=== PATIENT | male | born 1975 | race Caucasian/White ===

== ENCOUNTER 2024-10-21 06:20 | Inpatient (IN) | payer MEDICAID, OTHER ==
[2024-10-21] VITALS (8 sets, daily range): BP systolic 99–119; BP diastolic 71–93; TEMP 98.2; O2SAT 97–100
[~2024-10-21] VITALS: Ht 175.3 cm; Wt 74.4 kg
[2024-10-21] MEDS: IV NS 0.9% 500 ML BAG IV ONE (06:42)
[2024-10-21] MEDS ORDERED: Magnesium 1GM/D5W 100ML PREMIX 100 ML IV ONE (06:57)
[2024-10-21 06:58] LABS: CALCIUM, SERUM 9.3 mg/dL (8.5-10.1); CARBON DIOXIDE 26 mmol/L (21-32); CHLORIDE 102 mmol/L (98-107); CREATININE 1.4 mg/dL (0.6-1.3); GLUCOSE 157 mg/dL (74-106); POTASSIUM 4.5 mmol/L (3.5-5.1); SODIUM SERUM 136 mmol/L (136-145); UREA NITROGEN, BLOOD 43 mg/dL (7-18)
[2024-10-21 07:06] LABS: LACTIC ACID 2.4 mmol/L (0.4-2.0)
[2024-10-21] MEDS: Magnesium 1GM/D5W 100ML PREMIX 100 ML IV SCH (07:06)
[2024-10-21 07:08] LABS: BASOPHILS % (AUTO) 0.6 % (0.0-2.0); EOSINOPHILS # (AUTO) 0.1 K/uL (0.0-0.7); EOSINOPHILS % (AUTO) 0.7 % (0.0-6.0); HEMATOCRIT 40 % (39-51); INR 1.12 (0.91-1.10); LYMPHOCYTES # (AUTO) 1.9 K/uL (0.8-4.8); LYMPHOCYTES % (AUTO) 24.9 % (20.0-44.0); MEAN CORPUSCULAR HEMOGLOBIN 29 PG (26.0-33.0); MEAN CORPUSCULAR HGB CONC 33 g/dl (31.0-36.0); MEAN CORPUSCULAR VOLUME 90 fL (80-96); MONOCYTES # (AUTO) 0.4 K/uL (0.1-1.30); MONOCYTES % (AUTO) 5.9 % (2.0-12.0); NEUTROPHILS # (AUTO) 5.2 K/uL (1.8-8.9); NEUTROPHILS % (AUTO) 67.9 % (43.0-81.0); PARTIAL THROMBOPLASTIN TIME 26.3 SEC (24.3-34.3); PLATELET COUNT (AUTO) 196 K/uL (150-450); PROTHROMBIN TIME 11.8 SECS (9.2-11.1); RED BLOOD CELL COUNT(AUTO) 4.41 MIL/uL (4.5-6.0); WHITE BLOOD COUNT (AUTO) 7.6 K/uL (4.3-11.0)
[2024-10-21 07:14] LABS: ALKALINE PHOSPHATASE 113 U/L (46-116); ASPARTATE AMINOTRANSFERASE 59 U/L (15-37); BILIRUBIN,TOTAL 0.4 mg/dL (0.2-1.0); TOTAL PROTEIN, SERUM 7.5 g/dL (6.4-8.2)
[2024-10-21 07:27] LABS: ALANINE AMINOTRANSFERASE 96 U/L (12-78); BILIRUBIN,DIRECT 0.1 mg/dL (0.0-0.2)
[2024-10-21] MEDS ORDERED: ONDANSETRON HCL/PF 4 MG/2 ML VIAL ONE (07:32)
[2024-10-21] MEDS: ONDANSETRON HCL/PF - ER 4 MG/2 ML VIAL IV ONE (07:37)
[2024-10-21 07:47] LABS: MAGNESIUM 2.6 mg/dL (1.8-2.4); PHOSPHORUS 6.7 mg/dL (2.5-4.9)
[2024-10-21] MEDS: IV NS 0.9% 1,000 ML BAG IV ONE ×2 (08:33→10:02)
[2024-10-21 08:42] LABS: AMPHETAMINE, URINE NEGATIVE (NEGATIVE); APPEARANCE,URINE CLEAR (CLEAR); BARBITURATE, URINE NEGATIVE (NEGATIVE); BENZODIAZEPINE, URINE NEGATIVE (NEGATIVE); BILIRUBIN,URINE NEGATIVE (NEGATIVE); BLOOD, URINE NEGATIVE Ery/uL (NEGATIVE); CANNABINOID, URINE NEGATIVE (NEGATIVE); COCCAINE, URINE NEGATIVE (NEGATIVE); COLOR,URINE YELLOW (YELLOW); KETONES,URINE NEGATIVE (NEGATIVE); LEUKOCYTE ESTERASE ,URINE NEGATIVE (NEGATIVE); NITRITE, URINE NEGATIVE (NEGATIVE); OPIATE, URINE NEGATIVE (NEGATIVE); PH,URINE 5.5 (5.0-8.0); PHENCYCLIDINE SCREEN,URINE NEGATIVE (NEGATIVE); PROTEIN,URINE NEGATIVE (NEGATIVE); UGLUCOSE 2+ mg/dL (NEGATIVE); UROBILINOGEN,URINE 0.2 EU/dL (0.2)
[2024-10-21 09:02] LABS: ADD URINE CULTURE NO; BACTERIA,URINE Few /HPF (None Seen); RBC,URINE 0-2 /HPF (0-2); SQUAMOUS EPITHELIAL CELL,UR Few /HPF (None Seen); WBC,URINE 0-2 /HPF (0-3)
[2024-10-21] MEDS ORDERED: IOHEXOL-300 100 ML VIAL IV ONE (10:05)
[2024-10-21] MEDS ORDERED: CT SWABBABLE VALVE TRANS SET 1 EA INFUS.SET MC ONE (10:05)
[2024-10-21] MEDS ORDERED: IV NS 0.9% 250 ML IV ONE (10:05)
[2024-10-21] MEDS ORDERED: NOREPINEPHRINE 8MG/250ML RTU 250 ML IV ONE (11:11)
[2024-10-21] MEDS: NOREPINEPHRINE 8 MG in IV D5W 242 ML IV PRN ×2 (11:15→13:00)
[2024-10-21] MEDS: PIPERACILLIN /TAZOBACTAM 3.375 G in IV D5W 50 ML IV SCH (11:50)
[2024-10-21] MEDS ORDERED: ONDANSETRON HCL/PF 4 MG/2 ML VIAL IVP PRN (12:00)
[2024-10-21] MEDS: PANTOPRAZOLE 40 MG VIAL IV SCH (12:00)
[2024-10-21] MEDS: VANCOMYCIN 1 GM in IV D5W 250 ML IV SCH (12:15)
[2024-10-21] MEDS: DoBUTamine 500 MG/250 ML PIGGYBACK IV ONE (13:09)
[2024-10-21] MEDS: ACETAMINOPHEN 325 MG TABLET PO PRN (14:12)
[2024-10-21] MEDS ORDERED: MORPHINE SULFATE INJ 2 MG/ML DISP.SYRIN IV ONE (15:00)
[2024-10-21] MEDS ORDERED: APIX2.5T PO (20:40)
[2024-10-21] MEDS ORDERED: GABA-532 PO (20:40)
[2024-10-21] MEDS ORDERED: TRAM50TA2 PO (20:40)
[2024-10-21] MEDS ORDERED: LORA-259 PO (20:40)
[2024-10-21] MEDS ORDERED: SPIR25TA6 PO (20:40)
[2024-10-21] MEDS ORDERED: BUPR100T5 PO (20:40)
[2024-10-21] MEDS ORDERED: ATOR10TA PO (20:40)
[2024-10-21] MEDS ORDERED: EMPA10TA PO (20:40)
[2024-10-21] MEDS ORDERED: QUET25TA PO (20:40)
== END 2024-10-21 15:10 | disposition left against medical advice (07) | DRG 194 ==
LOC: EDBD → ER 06:22 → TELE1 10:16 → ICU 11:20
PROVIDERS: ADMIT Nurse Practitioner Acute Care; ATTEND Nurse Practitioner Acute Care
DX: I11.0 Hypertensive heart disease with heart failure (principal); N17.0 Acute kidney failure with tubular necrosis; R57.0 Cardiogenic shock; E87.20 Acidosis, unspecified; I95.9 Hypotension, unspecified; E44.1 Mild protein-calorie malnutrition; Z79.01 Long term (current) use of anticoagulants; E88.09 Other disorders of plasma-protein metabolism, not elsewhere classified; K81.9 Cholecystitis, unspecified; K76.1 Chronic passive congestion of liver; I50.23 Acute on chronic systolic (congestive) heart failure; F15.20 Other stimulant dependence, uncomplicated; I48.0 Paroxysmal atrial fibrillation; J44.9 Chronic obstructive pulmonary disease, unspecified; R74.01 Elevation of levels of liver transaminase levels; K21.9 Gastro-esophageal reflux disease without esophagitis; Z87.891 Personal history of nicotine dependence; Z68.24 Body mass index [BMI] 24.0-24.9, adult; B99.9 Unspecified infectious disease
CPT/HCPCS: 36415; 71045-TC; 76700-TC; 80048-TC; 80076-TC; 81001; 83605-TC; 83735-TC; 83880; 84100-TC; 84484-TC; 85025-TC; 85730-TC; 87040-TC; 87086-TC; A4223; G0378; J2270; J2405; J2543; J3370; J3475; J7030; J7040; J7050; J7060; Q9967

== ENCOUNTER 2024-10-21 17:24 | Inpatient (IN) | payer MEDICAID ==
[~2024-10-21] VITALS: Ht 177.8 cm; Wt 77.6 kg
[2024-10-21] VITALS (7 sets, daily range): BP systolic 105–120; BP diastolic 82–98; TEMP 97.7; O2SAT 97–100
[2024-10-21] MEDS ORDERED: NOREPINEPHRINE 8MG/250ML RTU 250 ML IV ONE (18:18)
[2024-10-21] MEDS: NOREPINEPHRINE 8 MG in IV D5W 242 ML IV PRN ×2 (18:23→21:35)
[2024-10-21 18:43] LABS: BASOPHILS % (AUTO) 0.5 % (0.0-2.0); EOSINOPHILS % (AUTO) 0.3 % (0.0-6.0); HEMATOCRIT 36 % (39-51); HEMOGLOBIN 12.1 g/dL (13.5-17.5); LYMPHOCYTES # (AUTO) 1.6 K/uL (0.8-4.8); LYMPHOCYTES % (AUTO) 19.7 % (20.0-44.0); MEAN CORPUSCULAR HEMOGLOBIN 30 PG (26.0-33.0); MEAN CORPUSCULAR HGB CONC 34 g/dl (31.0-36.0); MEAN CORPUSCULAR VOLUME 89 fL (80-96); MONOCYTES # (AUTO) 0.6 K/uL (0.1-1.30); MONOCYTES % (AUTO) 7.2 % (2.0-12.0); NEUTROPHILS # (AUTO) 5.9 K/uL (1.8-8.9); NEUTROPHILS % (AUTO) 72.3 % (43.0-81.0); PLATELET COUNT (AUTO) 172 K/uL (150-450); RED BLOOD CELL COUNT(AUTO) 4.03 MIL/uL (4.5-6.0); RED CELL DISTRIBUTION WIDTH 16.7 % (11.5-15.0); WHITE BLOOD COUNT (AUTO) 8.2 K/uL (4.3-11.0)
[2024-10-21 18:54] LABS: INR 1.17 (0.91-1.10); PARTIAL THROMBOPLASTIN TIME 25.4 SEC (24.3-34.3); PROTHROMBIN TIME 12.3 SECS (9.2-11.1)
[2024-10-21 19:04] LABS: ALBUMIN 2.8 g/dL (3.4-5.0); BILIRUBIN,DIRECT 0.3 mg/dL (0.0-0.2); BILIRUBIN,TOTAL 0.7 mg/dL (0.2-1.0); CALCIUM, SERUM 8.4 mg/dL (8.5-10.1); CREATININE 2.2 mg/dL (0.6-1.3); POTASSIUM 5.2 mmol/L (3.5-5.1)
[2024-10-21] MEDS ORDERED: ACETAMINOPHEN 325 MG TABLET PO PRN (20:30)
[2024-10-21] MEDS ORDERED: MAGNESIUM HYDROXIDE 30 ML UDC PO PRN (20:30)
[2024-10-21] MEDS ORDERED: ONDANSETRON HCL/PF 4 MG/2 ML VIAL IVP PRN (20:30)
[2024-10-21] MEDS ORDERED: Z GUARD REMEDY 4 OZ OINT TP PRN (20:30)
[2024-10-21] MEDS ORDERED: APIX2.5T PO (20:40)
[2024-10-21] MEDS ORDERED: TRAM50TA2 PO (20:40)
[2024-10-21] MEDS ORDERED: ATOR10TA PO (20:40)
[2024-10-21] MEDS ORDERED: EMPA10TA PO (20:40)
[2024-10-21] MEDS ORDERED: LORA-259 PO (20:40)
[2024-10-21] MEDS ORDERED: BUPR100T5 PO (20:40)
[2024-10-21] MEDS ORDERED: SPIR25TA6 PO (20:40)
[2024-10-21] MEDS ORDERED: GABA-532 PO (20:40)
[2024-10-21] MEDS ORDERED: QUET25TA PO (20:40)
[2024-10-21] MEDS: TRAZODONE 50 MG TABLET PO PRN (22:31)
[2024-10-21] MEDS: HYDROCODONE/APAP 5/325MG TABLET PO PRN (22:32)
[2024-10-22] VITALS (60 sets, daily range): BP systolic 80–170; BP diastolic 63–126; TEMP 98–98.5; O2SAT 86–98
[2024-10-22 04:41] LABS: BASOPHILS # (AUTO) 0.1 K/uL (0.0-0.2); BASOPHILS % (AUTO) 0.7 % (0.0-2.0); EOSINOPHILS % (AUTO) 0.2 % (0.0-6.0); HEMATOCRIT 38 % (39-51); HEMOGLOBIN 12.6 g/dL (13.5-17.5); LYMPHOCYTES # (AUTO) 2.2 K/uL (0.8-4.8); LYMPHOCYTES % (AUTO) 22.5 % (20.0-44.0); MEAN CORPUSCULAR HEMOGLOBIN 30 PG (26.0-33.0); MEAN CORPUSCULAR HGB CONC 33 g/dl (31.0-36.0); MEAN CORPUSCULAR VOLUME 90 fL (80-96); MONOCYTES # (AUTO) 0.8 K/uL (0.1-1.30); MONOCYTES % (AUTO) 7.7 % (2.0-12.0); NEUTROPHILS # (AUTO) 6.7 K/uL (1.8-8.9); NEUTROPHILS % (AUTO) 68.9 % (43.0-81.0); PLATELET COUNT (AUTO) 159 K/uL (150-450); RED BLOOD CELL COUNT(AUTO) 4.25 MIL/uL (4.5-6.0); RED CELL DISTRIBUTION WIDTH 16.6 % (11.5-15.0); WHITE BLOOD COUNT (AUTO) 9.8 K/uL (4.3-11.0)
[2024-10-22 05:09] LABS: CALCIUM, SERUM 8.9 mg/dL (8.5-10.1); CARBON DIOXIDE 24 mmol/L (21-32); CHLORIDE 102 mmol/L (98-107); CREATININE 1.8 mg/dL (0.6-1.3); GLUCOSE 120 mg/dL (74-106); MAGNESIUM 2.8 mg/dL (1.8-2.4); PHOSPHORUS 5.8 mg/dL (2.5-4.9); POTASSIUM 5.4 mmol/L (3.5-5.1); SODIUM SERUM 136 mmol/L (136-145); UREA NITROGEN, BLOOD 50 mg/dL (7-18)
[2024-10-22 05:23] LABS: CHOLESTEROL 139 mg/dL (<200); HDL CHOLESTEROL 61 mg/dL (40-60); LDL 73 mg/dL (0-99); TRIGLYCERIDES 63 mg/dL (30-150)
[2024-10-22] MEDS: PANTOPRAZOLE 40 MG TABLET.DR PO SCH (07:30)
[2024-10-22] MEDS ORDERED: APIXABAN 5 MG TABLET PO SCH (09:00)
[2024-10-22] MEDS: APIXABAN 5 MG TABLET PO SCH (09:00)
[2024-10-22] MEDS ORDERED: IV NS 0.9% 1,000 ML BAG IV PRN (12:30)
[2024-10-22] MEDS: SODIUM ZIRCONIUM CYCLOSILICATE 5 GM POWD.PACK PO ONE (12:42)
[2024-10-22] MEDS: FUROSEMIDE 20 MG/2 ML VIAL IV SCH ×2 (15:13→21:26)
[2024-10-22 15:46] LABS: CALCIUM, SERUM 8.7 mg/dL (8.5-10.1); CREATININE 1.4 mg/dL (0.6-1.3); POTASSIUM 4.5 mmol/L (3.5-5.1)
[2024-10-22] MEDS: ZOLPIDEM TARTRATE 5 MG TABLET PO PRN (22:26)
[2024-10-23] VITALS (24 sets, daily range): BP systolic 95–137; BP diastolic 62–90; TEMP 97.3–98.8; O2SAT 65–100
[2024-10-23 04:29] LABS: BASOPHILS % (AUTO) 0.2 % (0.0-2.0); EOSINOPHILS # (AUTO) 0.1 K/uL (0.0-0.7); EOSINOPHILS % (AUTO) 1.5 % (0.0-6.0); HEMATOCRIT 35 % (39-51); HEMOGLOBIN 11.9 g/dL (13.5-17.5); LYMPHOCYTES # (AUTO) 1.6 K/uL (0.8-4.8); LYMPHOCYTES % (AUTO) 27.4 % (20.0-44.0); MEAN CORPUSCULAR HEMOGLOBIN 30 PG (26.0-33.0); MEAN CORPUSCULAR HGB CONC 34 g/dl (31.0-36.0); MEAN CORPUSCULAR VOLUME 89 fL (80-96); MONOCYTES # (AUTO) 0.4 K/uL (0.1-1.30); MONOCYTES % (AUTO) 6.4 % (2.0-12.0); NEUTROPHILS # (AUTO) 3.8 K/uL (1.8-8.9); NEUTROPHILS % (AUTO) 64.5 % (43.0-81.0); PLATELET COUNT (AUTO) 142 K/uL (150-450); RED BLOOD CELL COUNT(AUTO) 3.92 MIL/uL (4.5-6.0); RED CELL DISTRIBUTION WIDTH 16.3 % (11.5-15.0); WHITE BLOOD COUNT (AUTO) 5.8 K/uL (4.3-11.0)
[2024-10-23 04:53] LABS: ALBUMIN 2.9 g/dL (3.4-5.0); BILIRUBIN,TOTAL 0.6 mg/dL (0.2-1.0); CALCIUM, SERUM 8.9 mg/dL (8.5-10.1); CREATININE 1.1 mg/dL (0.6-1.3); MAGNESIUM 2.5 mg/dL (1.8-2.4); PHOSPHORUS 3.8 mg/dL (2.5-4.9); POTASSIUM 4.1 mmol/L (3.5-5.1); TOTAL PROTEIN, SERUM 7.1 g/dL (6.4-8.2)
[2024-10-23 05:13] LABS: HEPATITIS B SURFACE AB (QUAL) Reactive (.); HEPATITIS Be AG Negative (Negative)
[2024-10-23] MEDS: ALBUTEROL FS 2.5 MG/3 ML VIAL.NEB NEB PRN (05:20)
[2024-10-23] MEDS: IPRATROPIUM NEB FS 0.5 MG/2.5 ML AMPUL.NEB NEB PRN (05:20)
[2024-10-23] MEDS: NICOTINE PATCH (21MG) 21 MG PATCH.TD24 TD SCH (08:53)
[2024-10-23] MEDS: AMIODARONE 150 MG in IV D5W 100 ML IV ONE (09:17)
[2024-10-23] MEDS: AMIODARONE 450 MG in IV D5W 241 ML IV PRN (09:40)
[2024-10-23] MEDS: FUROSEMIDE 40 MG/4 ML VIAL IV ONE (12:48)
[2024-10-23] MEDS: AMIODARONE HCL 200 MG TABLET PO SCH (12:50)
[2024-10-23] MEDS: MAG HYDROX/AL HYDROX/SIMETH 30 ML UDC PO PRN (19:29)
[2024-10-24] VITALS (9 sets, daily range): BP systolic 104–115; BP diastolic 80–87; TEMP 97.2–97.7; O2SAT 93–99
[2024-10-24 06:07] LABS: PTH, INTACT 42 pg/mL (15-65)
[2024-10-24] MEDS: POLYETHYLENE GLYCOL 3350 17 GM POWD.PACK PO PRN (10:04)
[2024-10-24] MEDS: LOSARTAN POTASSIUM 25 MG TABLET PO SCH (17:00)
[2024-10-24] MEDS ORDERED: MUPIROCIN OINT 2% 22 GM TUBE TP SCH (20:00)
[2024-10-25 00:07] LABS: HEPATITIS Be AB Non Reactive (Negative)
== END 2024-10-24 19:10 | disposition home or self-care (01) | DRG 194 ==
LOC: EDBD 17:35 → ER 17:35 → ICU 20:32 → TELE-TD 10-23 13:03 → TELE1 10-24 09:19
PROVIDERS: ADMIT Nurse Practitioner Acute Care; ATTEND Internal Medicine
PROC: 02HV33Z Insertion of Infusion Device into Superior Vena Cava, Percutaneous Approach (ICD-10-PCS; principal; 2024-10-21)
PROC: B548ZZA Ultrasonography of Superior Vena Cava, Guidance (ICD-10-PCS; 2024-10-21)
DX: I13.0 Hypertensive heart and chronic kidney disease with heart failure and stage 1 through stage 4 chronic kidney disease, or unspecified chronic kidney disease (principal); R57.0 Cardiogenic shock; N17.0 Acute kidney failure with tubular necrosis; I95.9 Hypotension, unspecified; I42.0 Dilated cardiomyopathy; Z79.01 Long term (current) use of anticoagulants; E87.1 Hypo-osmolality and hyponatremia; I50.23 Acute on chronic systolic (congestive) heart failure; N18.9 Chronic kidney disease, unspecified; D64.9 Anemia, unspecified; E87.5 Hyperkalemia; F17.210 Nicotine dependence, cigarettes, uncomplicated; I25.2 Old myocardial infarction; I48.0 Paroxysmal atrial fibrillation; J44.9 Chronic obstructive pulmonary disease, unspecified; Z71.6 Tobacco abuse counseling; E80.6 Other disorders of bilirubin metabolism; E83.9 Disorder of mineral metabolism, unspecified; M89.8X9 Other specified disorders of bone, unspecified site; F19.10 Other psychoactive substance abuse, uncomplicated
CPT/HCPCS: 36415; 38221; 71045-TC; 80048-TC; 80053-TC; 80061-TC; 80076-TC; 82550-TC; 83735-TC; 83880; 83970; 84100-TC; 84155; 84165; 84443-TC; 84484-TC; 85025-TC; 85730-TC; 86706; 86707; 86803; 87081-TC; 87350; 87806; 93307-TC; 94799-TC; 98960; A4223; A7526; G0378; J0282; J1938; J7050; J7060